=== PATIENT | male | born 1965 ===

== ENCOUNTER 2018-03-13 06:37 | Day surgery (SDC) | payer OTHER ==
[~2018-03-13 06:37] MED LIST: Buffered Lidocaine 0.9% SYRIN* 5 ML/SYR SYRINGE INTRADERM ONE; Dexamethasone IV* 4 MG/ML 1 ML (4 MG) IV SLOW PU ONE; Dexamethasone IV* 4 MG/ML 1 ML (4 MG) ONE; Famotidine IV* 10 MG/ML 2 ML (20 mg) IV ONE; Famotidine IV* 10 MG/ML 2 ML (20 mg) ONE; Lactated Ringers 1000 ML Bag* 1,000 ML IV SCH; ceFAZolin 2 GM PREMIX in ORs 2 GM/50 ML BAG IVPB ONE
[2018-03-13] MEDS ORDERED: Midazolam* 1 MG/ML 5 ML VIAL (5 MG) ONE (07:08)
[2018-03-13] MEDS ORDERED: fentaNYL* 50 MCG/ML 2 ML VIAL (100 MCG VIAL) ONE ×4 (07:08→11:49)
[2018-03-13] MEDS ORDERED: Propofol* 10 MG/ML 20 ML BTL ONE (07:09)
[2018-03-13] MEDS ORDERED: Lidocaine 2% PF * 5 ML VIAL ONE (07:09)
[2018-03-13] MEDS ORDERED: Bupivacaine 0.25% SDV PF* 10 ML VIAL INJ ONE ×2 (07:21→09:50)
[2018-03-13] MEDS ORDERED: Ketorolac INJ* 30 MG/ML 1 ML VIAL ONE (07:49)
[2018-03-13] MEDS ORDERED: KETAMINE HCL* 50 MG/ML 10 ML VIAL ONE (07:51)
[2018-03-13] MEDS ORDERED: Naloxone* 0.4 MG/ML 1 ML VIAL IV PRN (09:00)
[2018-03-13] MEDS ORDERED: PROCHLORPERAZINE INJ 5 MG/ML 2 ML VIAL IV PRN (09:00)
[2018-03-13] MEDS ORDERED: oxyCODONE/Acetamin 5/325 MG* TAB PO PRN (09:00)
[2018-03-13] MEDS ORDERED: DiMENhydriNATE IV* 50 MG/ML VIAL IV PUSH PRN (09:00)
[2018-03-13] MEDS ORDERED: fentaNYL* 50 MCG/ML 2 ML VIAL (100 MCG VIAL) IV PRN (09:00)
[2018-03-13] MEDS ORDERED: HYDROcodone/ACETAMIN 5-325 MG* 1 TAB PO PRN (09:00)
[2018-03-13] MEDS ORDERED: Ondansetron INJ* 2 MG/ML VIAL ONE (09:26)
[2018-03-13] MEDS ORDERED: Metoprolol Tartrate IV* 1 MG/ML 5 ML VIAL ONE (09:39)
[2018-03-13] MEDS ORDERED: HYDROcodone/ACETAMIN 5-325 MG* 1 TAB ONE (11:40)
[2018-03-13] MEDS ORDERED: Scopolamine 1.5 mg* PATCH ONE (13:30)
[2018-03-13] MEDS ORDERED: Scopolamine 1.5 mg* PATCH TRANSDERM SCH (14:00)
[2018-03-13 20:17] VITALS: BP 121/86
--- NOTE | 2018-03-14 02:32 | OP ---
DATE OF OPERATION: 03/13/18 - [facility] DATE OF : 65 SURGEON: Blanco Leblanc MD ENTERPRISE DATA ARCHITECT: LES Paz. An university administrative assistant was needed for the procedure to aid in positioning of the arm and retraction. ANESTHESIOLOGIST: Dr. Flowers. ANESTHESIA: General. PRE-OP DIAGNOSIS: Right scapholunate advanced collapse wrist. POST-OP DIAGNOSES: 1. Right scapholunate advanced collapse wrist. 2. Loose Arthrex InternalBrace suture anchors. OPERATIVE PROCEDURE: 1. Right wrist scaphoid excision and four-corner fusion. 2. Removal of deep implant (Arthrex InternalBrace suture anchors x2). INDICATIONS: Benton is 52. He had a failed scapholunate ligament reconstruction. The wrist is severely painful and unstable. We had talked about treatment options. 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 He understands the risks and benefits , including the risk of nonunion and exposed infection, and he wished to proceed. ESTIMATED BLOOD LOSS: 2 mL. COMPLICATIONS: None. FINDINGS: See above and below. DESCRIPTION OF PROCEDURE: Benton was seen in the preoperative holding area. The correct side, site, and procedure were identified. We came back to the operating room, where the arm was prepped and draped in the usual fashion and a time-out was performed. The arm was exsanguinated with the Esmarch and the tourniquet was inflated to 250 mmHg. I re-opened his prior dorsal midline incision over the dorsum of the wrist and dissection was carried down and full-thickness flaps were raised off the extensor retinaculum. There was some scar tissue, this was released. The extensor retinaculum was opened over where the third dorsal compartment ought to be as the EPL tendon had previously been transposed. I released the second and fourth and fifth compartments. The tendons were retracted out of the way and the dorsum of the wrist capsule was exposed. I opened the wrist as a distally based capsular U- lap and I immediately encountered a loose Arthrex Internal-Brace suture anchor. This was sitting in the dorsal soft tissue. This was excised. Both the Y-component of the suture anchor as well as the main body component were both loose and in the soft tissues; this was all excised. The tendon graft together with the suture tape was excised. I released the soft tissue all about the scaphoid. I then excised the scaphoid in its entirety in piecemeal fashion. I had attempted to excise it en bloc using a Steinmann pin as a joystick in the scaphoid, but the scaphoid broke and so I just excised it in piecemeal fashion. As I was doing that, a second Arthrex InternalBrace suture anchor was encountered. This was excised in its entirety together with its accompanying suture tape. With the scaphoid fully exposed and the capsular flap raised, I was able to examine the capitolunate joint as well as the radiolunate joint. The radiolunate joint was pristine. The capitolunate joint was very arthritic. I therefore decided to perform a four-corner fusion. I prepared the proximal pole of the capitate, the distal lunate, the triquetrum and the hamate. This was done with the rongeur and the bur until I had nice cancellous bone. I then opposed the edge of the capitate and the lunate bringing it out of DISI deformity; a [id number] clamp was placed to hold this. I also placed a provisional K-wire across the triquetrum and the hamate. I went ahead and then placed my guidewire for my Mini Acutrak screw. This was measured and then the wire was overdrilled and then the opening drill was used. I then placed a 28 mm Mini Acutrak screw. I checked my alignment. It looked like I had just a few degrees still of lunate extension; however, it was not so much that I wanted to remove my screw and risk the fixation as it was really just a few degrees. I then placed my second guidewire starting in the triquetrum and going across the hamate and into the capitate. This was measured and then overdrilled and then another 28 mm screw was placed. This provided excellent compression across the fusion surfaces. I took the cancellous bone from the scaphoid and I packed that around the edges for any gap, so there was a great apposition of the bone. Ultimately, everything was looking very nice. I therefore irrigated out the wound. The capsule was closed with 3-0 PDS suture. The EPL and EDM tendons were left transposed. The retinaculum was closed with 3-0 PDS suture. The skin was closed with 4-0 Monocryl and Steri- Strips. 0.25% plain Marcaine was infiltrated all about the operative area. The dressings were then applied and a well-padded cock-up plaster wrist splint was applied. The tourniquet was deflated and the hand pinked up immediately. He was woken up and taken to the recovery room in stable condition. [id number] #: [id number] MTDRuss
== END 2018-03-13 13:55 | disposition home or self-care (01) ==
LOC: OREAST 06:37
PROVIDERS: ATTEND Orthopaedic Surgery Hand Surgery
DX: M24.831 Other specific joint derangements of right wrist, not elsewhere classified (principal); T84.220A Displacement of internal fixation device of bones of hand and fingers, initial encounter; Y83.1 Surgical operation with implant of artificial internal device as the cause of abnormal reaction of the patient, or of later complication, without mention of misadventure at the time of the procedure; Z87.891 Personal history of nicotine dependence; E78.5 Hyperlipidemia, unspecified
CPT/HCPCS: 76000; 88300; 88304; 88311; A9270-GY; C1713; C1776; J0690; J1100; J1885; J2250; J2405; J2704; J3010; J3490

== ENCOUNTER → 2018-10-09 11:37 | Day surgery (SDC) | payer OTHER ==
[~2018-10-09 11:37] MED LIST changes: +Acetaminophen IV 1GM/100ML * 1,000 MG/100 ML VIAL IVPB ONE; -Buffered Lidocaine 0.9% SYRIN* 5 ML/SYR SYRINGE INTRADERM ONE; +Buffered Lidocaine 1% SYRIN* 1 ML/SYRINGE INTRADERM ONE; +Bupivacaine 0.25% SDV* 30 ML ONE; -Dexamethasone IV* 4 MG/ML 1 ML (4 MG) IV SLOW PU ONE; +DiMENhydriNATE IV* 50 MG/ML VIAL IV PUSH PRN; -Famotidine IV* 10 MG/ML 2 ML (20 mg) IV ONE; -Famotidine IV* 10 MG/ML 2 ML (20 mg) ONE; +HYDROcodone/ACETAMIN 5-325 MG* 1 TAB ONE; +Lidocaine 2% PF * 5 ML VIAL ONE; +Naloxone* 0.4 MG/ML 1 ML VIAL IV PRN; +Ondansetron INJ* 2 MG/ML VIAL ONE; +Propofol* 10 MG/ML 20 ML BTL ONE; +Scopolamine 1.5 mg* PATCH ONE; +Sodium Citrate/Citric Acid* 15 ML UDC ONE; +Sodium Citrate/Citric Acid* 15 ML UDC PO ONE; -ceFAZolin 2 GM PREMIX in ORs 2 GM/50 ML BAG IVPB ONE; +ceFAZolin 2 GM in NS PREMIX(*) 2 GM/100 ML BAG IVPB ONE; +fentaNYL* 50 MCG/ML 2 ML VIAL (100 MCG VIAL) IV PRN; +fentaNYL* 50 MCG/ML 2 ML VIAL (100 MCG VIAL) ONE
[2018-10-09 17:00] VITALS: BP 119/95
--- NOTE | 2018-10-09 18:48 | OP ---
DATE OF OPERATION: 10/09/18 - [facility] DATE OF : 65 SURGEON: Blanco Leblanc MD ROLLER ENGRAVER: LES Paz. An assistant research scientist was needed for the entirety of the procedure for positioning of the arm and retraction. ANESTHESIOLOGIST: Dr. Carter. ANESTHESIA: General. PRE-OP DIAGNOSES: 1. Right prominent Acutrak screw that had backed up after prior four-corner fusion. 2. 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 POST-OP DIAGNOSES: 1. Prominent right Acutrak screw. 2. Well-healed capitolunate, capitohamate and triquetrohamate fusions. OPERATIVE PROCEDURE: Right wrist screw removal revision intercarpal fusion with distal radius bone graft. INDICATIONS: Benton has the prominent screw. I told him I want to excise it before creating any problems in the radiolunate joint. Additionally, I was concerned due to the fact that the screw had backed up that it might be a sign of nonunion. There was not any lucency or haloing around the screw, but it backed up a little bit and so I was concerned. He understands the risks and benefits of surgery. He wants to proceed. ESTIMATED BLOOD LOSS: 2 mL. COMPLICATIONS: None. FINDINGS: See above and below. DESCRIPTION OF PROCEDURE: Benton was seen in the preoperative holding area. The correct site, side, and procedure were identified. We came back to the operating room where the arm was prepped and draped in the usual fashion and a time-out was performed. The arm was exsanguinated with the Esmarch and the tourniquet was inflated to 250 mmHg. I reopened his prior midline dorsal longitudinal incision. Dissection was carried down and full-thickness flaps were raised off the extensor retinaculum. Once I had raised the flap, I reopened the extensor retinaculum in line where I had opened up it before over the third dorsal compartment. The extensor tendons were dissected free and retracted out of the way. I raised a distally based capsular U flap. I flexed the wrist down and was able to clean the fibrous tissue out of the base of the Acutrak screw. There was a rim on the most radial aspect was sitting just a millimeter prominent on the one edge. The other edge was buried under the hyaline cartilage which looked good. I placed a guidewire into the screw and then the screwdriver over the guidewire and removed the screw uneventfully. I was able to pull traction on the joint and examine the radiolunate joint and that looked great. I then examined the remainder of the fusion surfaces. I had made no attempt previously to fuse the lunotriquetral joint, so that was not fused. The other joints looked like they were fused. I confirmed this on multiple mini C-arm fluoroscopy images at multiple angles and the capitolunate, the capitohamate and the triquetrohamate joints all looked fused. So, everything at this point was looking good, I irrigated out the wound. The capsule was closed with 3-0 PDS. The extensor retinaculum was closed with 3-0 PDS. Skin was closed with 4- 0 nylon suture. Marcaine had been infiltrated about the operative area. A soft dressing was applied and he was taken to the recovery room in stable condition. [id number]/CPS #: [id number] MTDRuss
== END | disposition home or self-care (01) ==
LOC: OREAST 11:37
PROVIDERS: ATTEND Orthopaedic Surgery Hand Surgery
DX: T84.220A Displacement of internal fixation device of bones of hand and fingers, initial encounter (principal); T84.84XA Pain due to internal orthopedic prosthetic devices, implants and grafts, initial encounter; Y83.1 Surgical operation with implant of artificial internal device as the cause of abnormal reaction of the patient, or of later complication, without mention of misadventure at the time of the procedure; E78.5 Hyperlipidemia, unspecified; Z85.528 Personal history of other malignant neoplasm of kidney; Z87.891 Personal history of nicotine dependence; K21.9 Gastro-esophageal reflux disease without esophagitis
CPT/HCPCS: 76000; 88300; A9270-GY; C1769; J0690; J1100; J2405; J2704; J3010; J3490

== ENCOUNTER 2019-01-08 11:56 | Day surgery (SDC) | payer OTHER ==
[~2019-01-08 11:56] MED LIST changes: -Acetaminophen IV 1GM/100ML * 1,000 MG/100 ML VIAL IVPB ONE; -Bupivacaine 0.25% SDV* 30 ML ONE; -Dexamethasone IV* 4 MG/ML 1 ML (4 MG) ONE; -DiMENhydriNATE IV* 50 MG/ML VIAL IV PUSH PRN; +Famotidine IV* 10 MG/ML 2 ML (20 mg) IV ONE; +Famotidine IV* 10 MG/ML 2 ML (20 mg) ONE; -HYDROcodone/ACETAMIN 5-325 MG* 1 TAB ONE; -Lidocaine 2% PF * 5 ML VIAL ONE; -Naloxone* 0.4 MG/ML 1 ML VIAL IV PRN; -Ondansetron INJ* 2 MG/ML VIAL ONE; -Propofol* 10 MG/ML 20 ML BTL ONE; -Scopolamine 1.5 mg* PATCH ONE; -Sodium Citrate/Citric Acid* 15 ML UDC ONE; -Sodium Citrate/Citric Acid* 15 ML UDC PO ONE; -ceFAZolin 2 GM in NS PREMIX(*) 2 GM/100 ML BAG IVPB ONE; -fentaNYL* 50 MCG/ML 2 ML VIAL (100 MCG VIAL) IV PRN; -fentaNYL* 50 MCG/ML 2 ML VIAL (100 MCG VIAL) ONE
[2019-01-08] MEDS ORDERED: fentaNYL* 50 MCG/ML 2 ML VIAL (100 MCG VIAL) ONE (12:48)
[2019-01-08] MEDS ORDERED: Midazolam* 1 MG/ML 2 ML VIAL (2 MG) ONE (12:48)
[2019-01-08] MEDS ORDERED: Bupivacaine 0.25% SDV* 30 ML ONE (14:29)
[2019-01-08] MEDS ORDERED: ceFAZolin 2 GM PREMIX in ORs 2 GM/50 ML BAG ONE (15:17)
[2019-01-08] MEDS ORDERED: Dexamethasone IV* 4 MG/ML 1 ML (4 MG) ONE (15:26)
[2019-01-08] MEDS ORDERED: Ondansetron INJ* 2 MG/ML VIAL ONE (15:26)
[2019-01-08] MEDS ORDERED: diPHENhydraMINE IV* 50 MG/ML 1 ml VIAL (BENADRYL) IV PRN (15:33)
[2019-01-08] MEDS ORDERED: Acetaminophen TAB* 325 MG PO PRN (15:33)
[2019-01-08] MEDS ORDERED: Ondansetron INJ* 2 MG/ML VIAL IV PRN (15:33)
[2019-01-08] MEDS ORDERED: oxyCODONE TAB* 5 MG TAB PO PRN (15:33)
[2019-01-08] MEDS ORDERED: Naloxone* 0.4 MG/ML 1 ML VIAL IV PRN (15:33)
[2019-01-08] MEDS ORDERED: HYDROmorphone INJ1* 1 MG/ML SYRINGE IV PRN (15:33)
[2019-01-08] MEDS ORDERED: PROCHLORPERAZINE INJ 5 MG/ML 2 ML VIAL IV PRN (15:33)
[2019-01-08] MEDS ORDERED: HYDROmorphone INJ* 0.5 MG/0.5 ML SYRINGE ONE (15:50)
[2019-01-08 17:38] VITALS: BP 120/76
--- NOTE | 2019-01-08 21:31 | OP ---
DATE OF OPERATION: 01/08/19 [facility] DATE OF : 65 SURGEON: Blanco Leblanc MD PROJECTOR OPERATOR: LES Paz. An volunteer assistant was needed for the procedure to aid in positioning of the arm and retraction. ANESTHESIOLOGIST: Dr. Lacey. ANESTHESIA: General. PRE-OP DIAGNOSES: 1. Left carpal tunnel syndrome. 2. Left cubital tunnel syndrome. POST-OP DIAGNOSES: 1. Left carpal tunnel syndrome. 2. Left cubital tunnel syndrome. OPERATIVE PROCEDURE: 1. Left endoscopic carpal tunnel release. 2. Left in situ cubital tunnel release. INDICATIONS: Benton has the aforementioned conditions. We had talked about treatment options. He had wanted to proceed with surgery. ESTIMATED BLOOD LOSS: 2 mL. COMPLICATIONS: None. FINDINGS: See above and below. DESCRIPTION OF PROCEDURE: Mr. Bergman was seen in the preoperative holding area. The correct side, site, and procedures were identified. We came back to the operating room. The arm was prepped and draped in the usual fashion and a time-out was performed. The arm was exsanguinated with the Esmarch and the tourniquet was inflated to 225 mmHg. I went ahead and made a 1-cm transverse incision just ulnar to the palmaris longus tendon. Dissection was carried down to the subcutaneous tissue and palmar fascia. The distal antebrachial fascia was split transversally with the tenotomy scissors. A 2-prong skin hook was placed. The carpal tunnel was dilated and dried out. The [employer] endoscopic carpal tunnel system was then used to release the transverse carpal ligament from distal to proximal. Once I had completed the release, I went ahead and the released the distal antebrachial fascia proximally with the tenotomy scissors. I confirmed the release. Everything was looking very good. We irrigated out the wound and the skin was closed with 4-0 Prolene suture and Steri-Strips. I then made a curvilinear incision centered over the cubital tunnel. Dissection was carried down through the subcutaneous tissue. Full thickness flaps were raised off of the cubital tunnel fascia. Crowder's ligament was released proximally. I released the fascia overlying the ulnar nerve all the way past the arcade of [place]. I then came distally and released the superficial FCU fascia. I then split the 2 edges of the FCU and then released the subfascial layer. At this point, everything was looking very good. There was no instability to the ulnar nerve. Everything looked very nicely decompressed. I obtained hemostasis with the Bovie. The subcutaneous tissue was reapproximated with 3-0 Vicryl. The skin was closed with 3-0 Monocryl and Steri-Strips. 0.25% plain Marcaine was infiltrated all about the operative area. He was then placed in soft dressings and taken to the recovery room in stable condition. [id number] #: [id number]
== END 2019-01-08 17:20 | disposition home or self-care (01) ==
LOC: OREAST 11:56
PROVIDERS: ATTEND Orthopaedic Surgery Hand Surgery
DX: G56.02 Carpal tunnel syndrome, left upper limb (principal); G56.22 Lesion of ulnar nerve, left upper limb; Z85.528 Personal history of other malignant neoplasm of kidney; Z87.891 Personal history of nicotine dependence; Z68.21 Body mass index [BMI] 21.0-21.9, adult; E78.5 Hyperlipidemia, unspecified
CPT/HCPCS: J0690; J1100; J1170; J2250; J2405; J3010; J3490